=== PATIENT | female | born 1955 | race Caucasian/White ===

== ENCOUNTER → 2017-08-17 | Outpatient (CLI) | payer OTHER | LOC: MC.RAD 08:00 | DX: Z12.31 Encounter for screening mammogram for malignant neoplasm of breast (principal) ==

== ENCOUNTER 2018-09-02 06:22 | Day surgery (SDC) | payer BC ==
[~2018-09-02] VITALS: Ht 165.1 cm; Wt 123.8 kg
[2018-09-02 06:42] VITALS: BP 152/68; PULSE 89; TEMP 97.4
[2018-09-02] MEDS ORDERED: PRILOSEC 20MG20 MG PO (06:52)
[2018-09-02] MEDS ORDERED: K-DUR20 MEQ PO (06:53)
[2018-09-02] MEDS ORDERED: LIPITOR 10MG10 MG PO (06:53)
[2018-09-02] MEDS ORDERED: GLUCOPHAGE850 MG/TAB PO (06:54)
[2018-09-02] MEDS ORDERED: HYGROTON 2525 MG/TAB PO (06:54)
[2018-09-02] MEDS ORDERED: NORVASC 10MG10 MG PO (06:54)
[2018-09-02] MEDS ORDERED: LOTENSIN40 MG PO (06:55)
[2018-09-02 07:55] VITALS: BP 141/81; PULSE 85; TEMP 96.9
[2018-09-02 08:00] VITALS: BP 142/93; PULSE 72
[2018-09-02 08:24] VITALS: BP 138/88; PULSE 78
[2018-09-02 08:25] VITALS: BP 106/69; PULSE 76
== END 2018-09-02 08:35 ==
LOC: SDCO 06:22
DX: Z12.11 Encounter for screening for malignant neoplasm of colon (principal); K62.1 Rectal polyp; K57.30 Diverticulosis of large intestine without perforation or abscess without bleeding; E78.00 Pure hypercholesterolemia, unspecified; E11.9 Type 2 diabetes mellitus without complications; I10 Essential (primary) hypertension; J45.909 Unspecified asthma, uncomplicated; K21.9 Gastro-esophageal reflux disease without esophagitis; Z90.710 Acquired absence of both cervix and uterus; Z90.49 Acquired absence of other specified parts of digestive tract; Z79.84 Long term (current) use of oral hypoglycemic drugs; Z86.010 Personal history of colon polyps
CPT/HCPCS: J2704; J7030

== ENCOUNTER → 2019-05-23 | Outpatient (CLI) | payer BC ==
[~2019-05-23] MED LIST: GLUCOPHAGE850 MG/TAB PO; HYGROTON 2525 MG/TAB PO; K-DUR20 MEQ PO; LIPITOR 10MG10 MG PO; LOTENSIN40 MG PO; NORVASC 10MG10 MG PO; PRILOSEC 20MG20 MG PO
== END ==
LOC: MC.RAD 08:00
DX: Z12.31 Encounter for screening mammogram for malignant neoplasm of breast (principal)

== ENCOUNTER → 2021-12-11 | Outpatient (CLI) | payer BC | LOC: MC.RAD 08:00 | DX: Z12.31 Encounter for screening mammogram for malignant neoplasm of breast (principal) ==

== ENCOUNTER 2023-01-08 09:08 | Day surgery (SDC) | payer MEDICARE, OTHER ==
[~2023-01-08] VITALS: Ht 165.1 cm; Wt 102.9 kg
[2023-01-08] MEDS ORDERED: LOTENSIN40 MG PO (10:12)
[2023-01-08 10:14] VITALS: BP 121/81; PULSE 86; TEMP 98.5
[2023-01-08 11:20] VITALS: BP 136/82; PULSE 71; TEMP 97
[2023-01-08 11:35] VITALS: BP 135/88; PULSE 66
== END 2023-01-08 12:02 | disposition home or self-care (01) ==
LOC: SDCO 09:08
DX: Z12.11 Encounter for screening for malignant neoplasm of colon (principal); K57.30 Diverticulosis of large intestine without perforation or abscess without bleeding; D12.3 Benign neoplasm of transverse colon; K21.9 Gastro-esophageal reflux disease without esophagitis; E11.9 Type 2 diabetes mellitus without complications
CPT/HCPCS: J2704; J7120

== ENCOUNTER → 2023-01-28 | Outpatient (CLI) | payer MEDICARE, OTHER | LOC: MC.RAD 16:44 | DX: Z12.31 Encounter for screening mammogram for malignant neoplasm of breast (principal) ==